=== PATIENT | male | born 1995 ===

== ENCOUNTER 2021-06-25 19:38 | Inpatient (IN) ==
[2021-06-25 20:35] LABS: Hematocrit 39.8 VOL% (42.0-52.0); Hemoglobin 13.6 GM/DL (14.0-18.0); Immature Granulocytes % 0.5 %; Immature Granulocytes Absolute 0.02 #; Lymphocytes # 1.1 10*3/uL (1.4-4.0); Lymphocytes % 27.5 % (21.2-54.2); Mean Corpuscular HGB Conc 34.2 GM/DL (32-36); Mean Corpuscular Volume 91.1 FL (87-102); Mean Platelet Volume 10.1 FL (9.6-12.0); Platelet Count 136 T/CUMM (130-400); Red Blood Count 4.37 MC/CUMM (3.8-5.5); Red Cell Distribution Width 11.9 % (9.3-17.3); White Blood Count 4.1 T/CUMM (4-12)
[2021-06-25 20:45] LABS: Alanine Aminotransferase 47 U/L (16-61); Albumin 3.8 G/DL (3.4-5.0); Alkaline Phosphatase 49 U/L (45-117); Aspartate Amino Transferase 109 U/L (0-37); Blood Urea Nitrogen 15 MG/DL (7-18); Calcium 8.6 MG/DL (8.5-10.1); Carbon Dioxide 25 MMOL/L (21-32); Estimated Glom Filtration Rate 104 ML/MIN; Glucose 67 MG/DL (74-106); Osmolality,Calculated 277.4 MOS/KG (273-304); Potassium 3.3 MMOL/L (3.5-5.1); Sodium 140 MMOL/L (136-145); Total Protein 8.1 G/DL (6.4-8.2)
[2021-06-25 20:56] LABS: Ferritin 423.6 ng/mL (26-388)
[2021-06-25 22:52] LABS: Bilirubin,Urine Negative (Negative); Blood, Urine Small mg/dL (Negative); Glucose,Urine (UA) Negative (Negative); Hyaline Casts,Urine 3 /LPF (0-3); Ketones,Urine 20 mg/dL (Negative); Mucus,Urine Occasional /LPF (Occasional); Nitrite,Urine Negative (Negative); Protein,Urine 30 MG/DL; RBC,Urine 5 /HPF (0-4); Urine Appearance CLEAR (Clear); Urine Color Yellow (Yellow); Urine Specific Gravity 1.026 (1.001-1.035)
[2021-06-25 23:05] LABS: Barbiturates Screen,Urine Negative (Negative); Benzodiazepines Screen,Urine Positive (Negative); Cannabinoid Screen,Urine Negative (Negative); Opiate Screen,Urine Negative (Negative); Phencyclidine Screen,Urine Negative (Negative)
[2021-06-26] MEDS ORDERED: ONDANSETRON 4 MG/2 ML VIAL IV PRN ×2 (03:00→09:00)
[2021-06-26] MEDS ORDERED: DICYCLOMINE 10 MG CAPSULE PO PRN (03:10)
[2021-06-26 07:09] LABS: Basophils % 0.2 % (0.0-0.8); Hematocrit 41.6 VOL% (42.0-52.0); Hemoglobin 14.5 GM/DL (14.0-18.0); Immature Granulocytes % 0.2 %; Immature Granulocytes Absolute 0.01 #; Lymphocytes # 1.2 10*3/uL (1.4-4.0); Lymphocytes % 30.1 % (21.2-54.2); Mean Corpuscular HGB Conc 34.9 GM/DL (32-36); Mean Platelet Volume 10.2 FL (9.6-12.0); Monocytes % 10.6 % (1.7-12.7); Neutrophils % 58.9 % (38.7-73.9); Platelet Count 122 T/CUMM (130-400); Red Blood Count 4.52 MC/CUMM (3.8-5.5); Red Cell Distribution Width 12.1 % (9.3-17.3); White Blood Count 4.1 T/CUMM (4-12)
[2021-06-26 07:27] LABS: Hypochromasia 1+; Microcytosis 1+; Platelet Estimate Adequate
[2021-06-26 07:28] LABS: Ovalocytes Slight
[2021-06-26 07:37] LABS: Albumin 3.9 G/DL (3.4-5.0); Bilirubin,Total 1.8 MG/DL (0.20-1.00); Calcium 8.6 MG/DL (8.5-10.1); Osmolality,Calculated 278.3 MOS/KG (273-304); Potassium 3.9 MMOL/L (3.5-5.1); Total Protein 7.9 G/DL (6.4-8.2)
[2021-06-26 07:38] LABS: Ferritin 405.3 ng/mL (26-388)
[2021-06-26] MEDS ORDERED: diphenhydrAMINE 50 MG/1 ML VIAL IV PRN ×2 (09:00)
[2021-06-26] MEDS ORDERED: SODIUM CHLORIDE 0.9% 200 ML IV SCH (09:00)
[2021-06-26] MEDS ORDERED: ACETAMINOPHEN 325 MG TABLET PO PRN (09:00)
[2021-06-26] MEDS ORDERED: MECLIZINE 25 MG TABLET PO PRN (09:00)
[2021-06-26] MEDS ORDERED: methylPREDNISolone SOD SUC 125 MG/2 ML VIAL IV PRN (09:00)
[2021-06-26] MEDS: MULTIVITAMIN (CENTRUM) TABLET PO SCH (09:20)
[2021-06-26] MEDS: FAMOTIDINE 20 MG TABLET PO SCH ×2 (09:20→20:30)
[2021-06-26] MEDS: DEXAMETHASONE 4 MG/1 ML VIAL IV SCH (09:20)
[2021-06-26] MEDS: FOLIC ACID 1 MG TABLET PO SCH (09:20)
[2021-06-26] MEDS: ASCORBIC ACID 500 MG TABLET PO SCH ×2 (09:21→20:30)
[2021-06-26] MEDS: ZINC GLUCONATE 50 MG TABLET PO SCH (09:21)
[2021-06-26] MEDS: SODIUM CHLORIDE 0.9% 1,000 ML IV SCH (09:21)
[2021-06-26] MEDS: THIAMINE 100 MG TABLET PO SCH (09:21)
[2021-06-26] MEDS: CHOLECALCIFEROL 1,000 UNIT TABLET PO SCH (09:21)
[2021-06-26] MEDS: ENOXAPARIN 40 MG/0.4 ML SYRINGE SUBCUT SCH (09:56)
[2021-06-26] MEDS ORDERED: CASIRIVIMAB/IMDEVIMAB 1,200 MG in SODIUM CHLORIDE 0.9% 100 ML IV ONE (10:00)
[2021-06-26] MEDS: ZIPRASIDONE 20 MG/1 ML VIAL IM PRN (13:26)
[2021-06-26] MEDS: HydrOXYzine PAMOATE 25 MG CAPSULE PO PRN (20:30)
[2021-06-26] MEDS: METHOCARBAMOL 500 MG TABLET PO PRN (20:30)
[2021-06-27] MEDS: LORazepam 2 MG/1 ML VIAL IV PRN (00:10)
[2021-06-27] MEDS: SODIUM CHLORIDE 0.9% 1,000 ML IV SCH (06:58)
[2021-06-27 07:03] LABS: Basophils % 0.2 % (0.0-0.8); Hematocrit 39.6 VOL% (42.0-52.0); Hemoglobin 13.6 GM/DL (14.0-18.0); Immature Granulocytes % 0.2 %; Immature Granulocytes Absolute 0.01 #; Lymphocytes % 24.3 % (21.2-54.2); Mean Corpuscular HGB Conc 34.3 GM/DL (32-36); Mean Corpuscular Volume 93.2 FL (87-102); Mean Platelet Volume 10.3 FL (9.6-12.0); Monocytes % 9.2 % (1.7-12.7); Neutrophils % 66.1 % (38.7-73.9); Platelet Count 123 T/CUMM (130-400); Red Blood Count 4.25 MC/CUMM (3.8-5.5); Red Cell Distribution Width 12.1 % (9.3-17.3)
[2021-06-27 07:26] LABS: Hypochromasia Slight
[2021-06-27 07:32] LABS: Calcium 8.6 MG/DL (8.5-10.1); Osmolality,Calculated 281.1 MOS/KG (273-304); Potassium 3.8 MMOL/L (3.5-5.1)
[2021-06-27] MEDS: MULTIVITAMIN (CENTRUM) TABLET PO SCH (08:40)
[2021-06-27] MEDS: DEXAMETHASONE 4 MG/1 ML VIAL IV SCH (08:40)
[2021-06-27] MEDS: ASCORBIC ACID 500 MG TABLET PO SCH ×2 (08:41→20:30)
[2021-06-27] MEDS: FOLIC ACID 1 MG TABLET PO SCH ×2 (08:41→09:00)
[2021-06-27] MEDS: FAMOTIDINE 20 MG TABLET PO SCH ×2 (08:41→20:30)
[2021-06-27] MEDS: ZINC GLUCONATE 50 MG TABLET PO SCH (08:41)
[2021-06-27] MEDS: ENOXAPARIN 40 MG/0.4 ML SYRINGE SUBCUT SCH (08:41)
[2021-06-27] MEDS: THIAMINE 100 MG TABLET PO SCH (08:41)
[2021-06-27] MEDS: CHOLECALCIFEROL 1,000 UNIT TABLET PO SCH (08:41)
[2021-06-27] MEDS: OLANZapine 5 MG TABLET PO SCH ×2 (12:50→20:30)
[2021-06-27] MEDS: MELATONIN 3 MG TABLET PO PRN (20:30)
[2021-06-27] MEDS: HydrOXYzine PAMOATE 25 MG CAPSULE PO PRN (20:30)
[2021-06-28 06:18] LABS: Basophils % 0.2 % (0.0-0.8); Hematocrit 40.6 VOL% (42.0-52.0); Hemoglobin 13.9 GM/DL (14.0-18.0); Immature Granulocytes % 0.3 %; Immature Granulocytes Absolute 0.02 #; Lymphocytes # 1.4 10*3/uL (1.4-4.0); Lymphocytes % 22.9 % (21.2-54.2); Mean Corpuscular HGB Conc 34.2 GM/DL (32-36); Mean Corpuscular Volume 92.9 FL (87-102); Mean Platelet Volume 10.3 FL (9.6-12.0); Monocytes % 7.9 % (1.7-12.7); Neutrophils % 68.7 % (38.7-73.9); Platelet Count 176 T/CUMM (130-400); Red Blood Count 4.37 MC/CUMM (3.8-5.5); Red Cell Distribution Width 11.9 % (9.3-17.3); White Blood Count 5.9 T/CUMM (4-12)
[2021-06-28 06:29] LABS: Calcium 8.7 MG/DL (8.5-10.1); Osmolality,Calculated 279.3 MOS/KG (273-304); Potassium 3.8 MMOL/L (3.5-5.1)
[2021-06-28] MEDS: OLANZapine 5 MG TABLET PO SCH ×2 (09:00→20:25)
[2021-06-28] MEDS: THIAMINE 100 MG TABLET PO SCH (09:00)
[2021-06-28] MEDS: ASCORBIC ACID 500 MG TABLET PO SCH ×2 (09:00→20:25)
[2021-06-28] MEDS: ZINC GLUCONATE 50 MG TABLET PO SCH (09:00)
[2021-06-28] MEDS: MULTIVITAMIN (CENTRUM) TABLET PO SCH (09:00)
[2021-06-28] MEDS: DEXAMETHASONE 4 MG/1 ML VIAL IV SCH (09:00)
[2021-06-28] MEDS: ENOXAPARIN 40 MG/0.4 ML SYRINGE SUBCUT SCH (09:00)
[2021-06-28] MEDS: FAMOTIDINE 20 MG TABLET PO SCH ×2 (09:00→20:25)
[2021-06-28] MEDS: CHOLECALCIFEROL 1,000 UNIT TABLET PO SCH (09:00)
[2021-06-28] MEDS: ZIPRASIDONE 20 MG/1 ML VIAL IM PRN (11:39)
[2021-06-28] MEDS: LORazepam 2 MG/1 ML VIAL IV PRN (18:41)
[2021-06-28] MEDS ORDERED: LORazepam 2 MG/1 ML VIAL ONE (18:44)
[2021-06-28] MEDS: HydrOXYzine PAMOATE 25 MG CAPSULE PO PRN (20:25)
[2021-06-28] MEDS: MELATONIN 3 MG TABLET PO PRN (20:25)
[2021-06-29 05:43] LABS: Basophils % 0.2 % (0.0-0.8); Hematocrit 38.1 VOL% (42.0-52.0); Hemoglobin 12.8 GM/DL (14.0-18.0); Immature Granulocytes % 0.3 %; Immature Granulocytes Absolute 0.02 #; Lymphocytes # 1.7 10*3/uL (1.4-4.0); Lymphocytes % 27.4 % (21.2-54.2); Mean Corpuscular HGB Conc 33.6 GM/DL (32-36); Mean Corpuscular Volume 92.3 FL (87-102); Mean Platelet Volume 9.9 FL (9.6-12.0); Monocytes % 12.6 % (1.7-12.7); Neutrophils % 59.5 % (38.7-73.9); Platelet Count 205 T/CUMM (130-400); Red Blood Count 4.13 MC/CUMM (3.8-5.5); Red Cell Distribution Width 11.9 % (9.3-17.3); White Blood Count 6.3 T/CUMM (4-12)
[2021-06-29 06:11] LABS: Calcium 8.6 MG/DL (8.5-10.1); Osmolality,Calculated 282.1 MOS/KG (273-304); Potassium 3.5 MMOL/L (3.5-5.1)
[2021-06-29] MEDS: ENOXAPARIN 40 MG/0.4 ML SYRINGE SUBCUT SCH (08:24)
[2021-06-29] MEDS: ZINC GLUCONATE 50 MG TABLET PO SCH (08:25)
[2021-06-29] MEDS: FOLIC ACID 1 MG TABLET PO SCH (08:25)
[2021-06-29] MEDS: OLANZapine 5 MG TABLET PO SCH ×2 (08:25→20:30)
[2021-06-29] MEDS: CHOLECALCIFEROL 1,000 UNIT TABLET PO SCH (08:25)
[2021-06-29] MEDS: MULTIVITAMIN (CENTRUM) TABLET PO SCH (08:25)
[2021-06-29] MEDS: DEXAMETHASONE 4 MG/1 ML VIAL IV SCH (08:25)
[2021-06-29] MEDS: FAMOTIDINE 20 MG TABLET PO SCH ×2 (08:25→20:30)
[2021-06-29] MEDS: THIAMINE 100 MG TABLET PO SCH (08:26)
[2021-06-29] MEDS: ASCORBIC ACID 500 MG TABLET PO SCH ×2 (08:26→20:30)
[2021-06-29] MEDS: HydrOXYzine PAMOATE 25 MG CAPSULE PO PRN ×2 (13:33→20:30)
[2021-06-29] MEDS: ACETAMINOPHEN 325 MG TABLET PO PRN (16:06)
[2021-06-29] MEDS: MELATONIN 3 MG TABLET PO PRN (20:30)
[2021-06-30] MEDS: METHOCARBAMOL 500 MG TABLET PO PRN (01:53)
[2021-06-30 07:00] LABS: Basophils % 0.2 % (0.0-0.8); Eosinophils % 0.1 % (0.00-10.9); Hematocrit 40.5 VOL% (42.0-52.0); Hemoglobin 13.6 GM/DL (14.0-18.0); Immature Granulocytes % 0.8 %; Immature Granulocytes Absolute 0.08 #; Lymphocytes # 1.8 10*3/uL (1.4-4.0); Lymphocytes % 17.8 % (21.2-54.2); Mean Corpuscular HGB Conc 33.6 GM/DL (32-36); Mean Corpuscular Volume 92.7 FL (87-102); Mean Platelet Volume 9.8 FL (9.6-12.0); Monocytes % 11.3 % (1.7-12.7); Neutrophils % 69.8 % (38.7-73.9); Platelet Count 240 T/CUMM (130-400); Red Blood Count 4.37 MC/CUMM (3.8-5.5); Red Cell Distribution Width 11.9 % (9.3-17.3); White Blood Count 10.3 T/CUMM (4-12)
[2021-06-30 07:28] LABS: Calcium 9.1 MG/DL (8.5-10.1); Osmolality,Calculated 284.3 MOS/KG (273-304); Potassium 3.2 MMOL/L (3.5-5.1)
[2021-06-30] MEDS: ASCORBIC ACID 500 MG TABLET PO SCH ×2 (09:04→21:00)
[2021-06-30] MEDS: ZINC GLUCONATE 50 MG TABLET PO SCH (09:04)
[2021-06-30] MEDS: FAMOTIDINE 20 MG TABLET PO SCH ×2 (09:05→21:00)
[2021-06-30] MEDS: CHOLECALCIFEROL 1,000 UNIT TABLET PO SCH (09:05)
[2021-06-30] MEDS: DEXAMETHASONE 4 MG/1 ML VIAL IV SCH (09:05)
[2021-06-30] MEDS: OLANZapine 5 MG TABLET PO SCH ×2 (09:05→21:00)
[2021-06-30] MEDS: THIAMINE 100 MG TABLET PO SCH (09:05)
[2021-06-30] MEDS: FOLIC ACID 1 MG TABLET PO SCH (09:05)
[2021-06-30] MEDS: ENOXAPARIN 40 MG/0.4 ML SYRINGE SUBCUT SCH (09:05)
[2021-06-30] MEDS: MULTIVITAMIN (CENTRUM) TABLET PO SCH (09:05)
[2021-06-30] MEDS: MELATONIN 3 MG TABLET PO PRN (21:00)
[2021-07-01] MEDS: OLANZapine 5 MG TABLET PO SCH ×2 (08:19→20:50)
[2021-07-01] MEDS: MULTIVITAMIN (CENTRUM) TABLET PO SCH (08:19)
[2021-07-01] MEDS: CHOLECALCIFEROL 1,000 UNIT TABLET PO SCH (08:19)
[2021-07-01] MEDS: FAMOTIDINE 20 MG TABLET PO SCH ×2 (08:19→20:49)
[2021-07-01] MEDS: ASCORBIC ACID 500 MG TABLET PO SCH ×2 (08:20→20:49)
[2021-07-01] MEDS: ENOXAPARIN 40 MG/0.4 ML SYRINGE SUBCUT SCH (08:20)
[2021-07-01] MEDS: DEXAMETHASONE 4 MG/1 ML VIAL IV SCH (08:20)
[2021-07-01] MEDS: ZINC GLUCONATE 50 MG TABLET PO SCH (08:20)
[2021-07-01] MEDS: FOLIC ACID 1 MG TABLET PO SCH (08:20)
[2021-07-01] MEDS: THIAMINE 100 MG TABLET PO SCH (08:21)
[2021-07-01] MEDS: HydrOXYzine PAMOATE 25 MG CAPSULE PO PRN (15:16)
[2021-07-01] MEDS: MELATONIN 3 MG TABLET PO PRN (20:49)
[2021-07-02 05:51] LABS: Calcium 9.2 MG/DL (8.5-10.1); Osmolality,Calculated 274.8 MOS/KG (273-304); Potassium 3.8 MMOL/L (3.5-5.1)
[2021-07-02] MEDS: ASCORBIC ACID 500 MG TABLET PO SCH ×2 (08:52→21:18)
[2021-07-02] MEDS: OLANZapine 5 MG TABLET PO SCH ×2 (08:53→21:18)
[2021-07-02] MEDS: FOLIC ACID 1 MG TABLET PO SCH (08:53)
[2021-07-02] MEDS: ACETAMINOPHEN 325 MG TABLET PO PRN (08:53)
[2021-07-02] MEDS: FAMOTIDINE 20 MG TABLET PO SCH ×2 (08:53→21:17)
[2021-07-02] MEDS: CHOLECALCIFEROL 1,000 UNIT TABLET PO SCH (08:53)
[2021-07-02] MEDS: ZINC GLUCONATE 50 MG TABLET PO SCH (08:53)
[2021-07-02] MEDS: MULTIVITAMIN (CENTRUM) TABLET PO SCH (08:53)
[2021-07-02] MEDS: ENOXAPARIN 40 MG/0.4 ML SYRINGE SUBCUT SCH (08:54)
[2021-07-02] MEDS: DEXAMETHASONE 4 MG/1 ML VIAL IV SCH (08:54)
[2021-07-02] MEDS: cefTRIAXone 1,000 MG in SODIUM CHLORIDE 0.9% 100 ML IV SCH (09:10)
[2021-07-02] MEDS: THIAMINE 100 MG TABLET PO SCH (09:15)
[2021-07-02] MEDS: AZITHROMYCIN INJ 500 MG in SODIUM CHLORIDE 0.9% 250 ML IV SCH (09:50)
[2021-07-02 12:34] LABS: Bacteria,Urine Many /HPF (Few); Bilirubin,Urine Negative (Negative); Blood, Urine Negative (Negative); Glucose,Urine (UA) >=500 mg/dL (Negative); Ketones,Urine Negative (Negative); Mucus,Urine Few /LPF (Occasional); Nitrite,Urine Positive (Negative); Protein,Urine Negative; RBC,Urine 5 /HPF (0-4); Urine Appearance CLEAR (Clear); Urine Color Yellow (Yellow); Urine Specific Gravity 1.027 (1.001-1.035); Urine Urobilinogen < 2.0 EU/DL (0.2-1.0)
[2021-07-02] MEDS ORDERED: VALPROIC ACID INJ 1,000 MG in SODIUM CHLORIDE 0.9% 100 ML IV ONE (18:30)
[2021-07-02] MEDS: DIVALPROEX ER 500 MG TABLET PO SCH (21:17)
[2021-07-03 05:44] LABS: Basophils % 0.1 % (0.0-0.8); Hematocrit 35.8 VOL% (42.0-52.0); Hemoglobin 12.5 GM/DL (14.0-18.0); Immature Granulocytes % 2.6 %; Immature Granulocytes Absolute 0.38 #; Lymphocytes # 1.6 10*3/uL (1.4-4.0); Lymphocytes % 10.7 % (21.2-54.2); Mean Corpuscular HGB Conc 34.9 GM/DL (32-36); Mean Corpuscular Volume 89.7 FL (87-102); Mean Platelet Volume 9.6 FL (9.6-12.0); Monocytes % 7.5 % (1.7-12.7); Neutrophils % 79.1 % (38.7-73.9); Platelet Count 332 T/CUMM (130-400); Red Blood Count 3.99 MC/CUMM (3.8-5.5); Red Cell Distribution Width 11.9 % (9.3-17.3); White Blood Count 14.6 T/CUMM (4-12)
[2021-07-03 06:12] LABS: Calcium 9.3 MG/DL (8.5-10.1); Osmolality,Calculated 274.2 MOS/KG (273-304); Potassium 4.1 MMOL/L (3.5-5.1)
[2021-07-03] MEDS: MULTIVITAMIN (CENTRUM) TABLET PO SCH (10:46)
[2021-07-03] MEDS: DIVALPROEX ER 500 MG TABLET PO SCH ×2 (10:47→20:01)
[2021-07-03] MEDS: DEXAMETHASONE 4 MG/1 ML VIAL IV SCH (10:47)
[2021-07-03] MEDS: FOLIC ACID 1 MG TABLET PO SCH (10:47)
[2021-07-03] MEDS: ENOXAPARIN 40 MG/0.4 ML SYRINGE SUBCUT SCH (10:47)
[2021-07-03] MEDS: FAMOTIDINE 20 MG TABLET PO SCH ×2 (10:47→20:01)
[2021-07-03] MEDS: CHOLECALCIFEROL 1,000 UNIT TABLET PO SCH (10:48)
[2021-07-03] MEDS: ASCORBIC ACID 500 MG TABLET PO SCH ×2 (10:48→20:01)
[2021-07-03] MEDS: THIAMINE 100 MG TABLET PO SCH (10:48)
[2021-07-03] MEDS: cefTRIAXone 1,000 MG in SODIUM CHLORIDE 0.9% 100 ML IV SCH (10:48)
[2021-07-03] MEDS: OLANZapine 5 MG TABLET PO SCH ×2 (10:49→20:01)
[2021-07-03] MEDS: ZINC GLUCONATE 50 MG TABLET PO SCH (10:49)
[2021-07-03] MEDS: AZITHROMYCIN INJ 500 MG in SODIUM CHLORIDE 0.9% 250 ML IV SCH (10:50)
[2021-07-03] MEDS: HydrOXYzine PAMOATE 25 MG CAPSULE PO PRN (21:45)
[2021-07-03] MEDS: MELATONIN 3 MG TABLET PO PRN (21:45)
[2021-07-04 05:51] LABS: Basophils % 0.2 % (0.0-0.8); Hematocrit 37.1 VOL% (42.0-52.0); Hemoglobin 12.8 GM/DL (14.0-18.0); Immature Granulocytes % 4.9 %; Immature Granulocytes Absolute 0.73 #; Lymphocytes # 1.3 10*3/uL (1.4-4.0); Lymphocytes % 8.9 % (21.2-54.2); Mean Corpuscular HGB Conc 34.5 GM/DL (32-36); Mean Corpuscular Volume 90.7 FL (87-102); Monocytes % 6.9 % (1.7-12.7); Neutrophils % 79.1 % (38.7-73.9); Platelet Count 377 T/CUMM (130-400); Red Blood Count 4.09 MC/CUMM (3.8-5.5); Red Cell Distribution Width 11.9 % (9.3-17.3); White Blood Count 14.8 T/CUMM (4-12)
[2021-07-04 06:19] LABS: Band Neutrophils 1 % (0-10); Hypochromasia 1+; Lymphocytes 13 % (20-55); Microcytosis 1+; Platelet Estimate Adequate; Segmented Neutrophils 82 % (50-85); Total Cells Counted 100
[2021-07-04 06:21] LABS: Calcium 9.7 MG/DL (8.5-10.1); Ferritin 238.6 ng/mL (26-388); Potassium 4.2 MMOL/L (3.5-5.1)
[2021-07-04] MEDS: cefTRIAXone 1,000 MG in SODIUM CHLORIDE 0.9% 100 ML IV SCH (09:01)
[2021-07-04] MEDS: MULTIVITAMIN (CENTRUM) TABLET PO SCH (09:35)
[2021-07-04] MEDS: DEXAMETHASONE 4 MG/1 ML VIAL IV SCH (09:36)
[2021-07-04] MEDS: DIVALPROEX ER 500 MG TABLET PO SCH ×2 (09:37→20:39)
[2021-07-04] MEDS: ENOXAPARIN 40 MG/0.4 ML SYRINGE SUBCUT SCH (09:37)
[2021-07-04] MEDS: ASCORBIC ACID 500 MG TABLET PO SCH ×2 (09:37→20:38)
[2021-07-04] MEDS: THIAMINE 100 MG TABLET PO SCH (09:37)
[2021-07-04] MEDS: FOLIC ACID 1 MG TABLET PO SCH (09:37)
[2021-07-04] MEDS: ZINC GLUCONATE 50 MG TABLET PO SCH (09:37)
[2021-07-04] MEDS: CHOLECALCIFEROL 1,000 UNIT TABLET PO SCH (09:37)
[2021-07-04] MEDS: FAMOTIDINE 20 MG TABLET PO SCH ×2 (09:37→20:38)
[2021-07-04] MEDS: OLANZapine 5 MG TABLET PO SCH ×2 (09:38→20:39)
[2021-07-04] MEDS: AZITHROMYCIN INJ 500 MG in SODIUM CHLORIDE 0.9% 250 ML IV SCH (10:24)
[2021-07-05 06:06] LABS: Basophils % 0.2 % (0.0-0.8); Hematocrit 37.5 VOL% (42.0-52.0); Hemoglobin 12.9 GM/DL (14.0-18.0); Immature Granulocytes % 4.2 %; Immature Granulocytes Absolute 0.53 #; Lymphocytes # 1.9 10*3/uL (1.4-4.0); Lymphocytes % 14.7 % (21.2-54.2); Mean Corpuscular HGB Conc 34.4 GM/DL (32-36); Mean Corpuscular Volume 90.1 FL (87-102); Mean Platelet Volume 9.8 FL (9.6-12.0); Monocytes % 7.6 % (1.7-12.7); Neutrophils % 73.3 % (38.7-73.9); Platelet Count 434 T/CUMM (130-400); Red Blood Count 4.16 MC/CUMM (3.8-5.5); Red Cell Distribution Width 11.9 % (9.3-17.3); White Blood Count 12.7 T/CUMM (4-12)
[2021-07-05 06:24] LABS: Calcium 9.5 MG/DL (8.5-10.1); Osmolality,Calculated 278.8 MOS/KG (273-304); Potassium 4.1 MMOL/L (3.5-5.1)
[2021-07-05 06:52] LABS: Anisocytosis 1+; Band Neutrophils 3 % (0-10); Lymphocytes 16 % (20-55); Macrocytosis 1+; Nucleated Red Blood Cells 1 (0-5); Platelet Estimate Normal; Segmented Neutrophils 72 % (50-85); Total Cells Counted 100
[2021-07-05] MEDS: MULTIVITAMIN (CENTRUM) TABLET PO SCH (09:58)
[2021-07-05] MEDS: DEXAMETHASONE 4 MG/1 ML VIAL IV SCH (09:58)
[2021-07-05] MEDS: ASCORBIC ACID 500 MG TABLET PO SCH ×2 (09:59→21:31)
[2021-07-05] MEDS: cefTRIAXone 1,000 MG in SODIUM CHLORIDE 0.9% 100 ML IV SCH (09:59)
[2021-07-05] MEDS: FAMOTIDINE 20 MG TABLET PO SCH ×2 (09:59→21:31)
[2021-07-05] MEDS: ENOXAPARIN 40 MG/0.4 ML SYRINGE SUBCUT SCH (09:59)
[2021-07-05] MEDS: THIAMINE 100 MG TABLET PO SCH (09:59)
[2021-07-05] MEDS: FOLIC ACID 1 MG TABLET PO SCH (09:59)
[2021-07-05] MEDS: DIVALPROEX ER 500 MG TABLET PO SCH ×2 (09:59→21:31)
[2021-07-05] MEDS: CHOLECALCIFEROL 1,000 UNIT TABLET PO SCH (10:00)
[2021-07-05] MEDS: OLANZapine 5 MG TABLET PO SCH ×2 (10:00→21:31)
[2021-07-05] MEDS: AZITHROMYCIN 250 MG TABLET PO SCH (10:00)
[2021-07-05] MEDS: ZINC GLUCONATE 50 MG TABLET PO SCH (10:00)
[2021-07-05] MEDS: MELATONIN 3 MG TABLET PO PRN (21:31)
[2021-07-06 05:54] LABS: Basophils % 0.4 % (0.0-0.8); Hematocrit 38.4 VOL% (42.0-52.0); Hemoglobin 13.6 GM/DL (14.0-18.0); Immature Granulocytes % 4.8 %; Immature Granulocytes Absolute 0.51 #; Lymphocytes # 2.4 10*3/uL (1.4-4.0); Lymphocytes % 22.4 % (21.2-54.2); Mean Corpuscular HGB Conc 35.4 GM/DL (32-36); Mean Corpuscular Volume 90.1 FL (87-102); Mean Platelet Volume 9.8 FL (9.6-12.0); Monocytes % 8.3 % (1.7-12.7); Neutrophils % 64.1 % (38.7-73.9); Platelet Count 404 T/CUMM (130-400); Red Blood Count 4.26 MC/CUMM (3.8-5.5); Red Cell Distribution Width 11.9 % (9.3-17.3); White Blood Count 10.6 T/CUMM (4-12)
[2021-07-06 06:04] LABS: Calcium 9.7 MG/DL (8.5-10.1); Potassium 4.3 MMOL/L (3.5-5.1)
[2021-07-06 06:22] LABS: Band Neutrophils 1 % (0-10); Hypochromasia Slight; Lymphocytes 33 % (20-55); Microcytosis Slight; Platelet Estimate Adequate; Segmented Neutrophils 58 % (50-85); Total Cells Counted 100
[2021-07-06] MEDS: ASCORBIC ACID 500 MG TABLET PO SCH ×2 (09:27→22:20)
[2021-07-06] MEDS: THIAMINE 100 MG TABLET PO SCH (09:27)
[2021-07-06] MEDS: ZINC GLUCONATE 50 MG TABLET PO SCH (09:27)
[2021-07-06] MEDS: MULTIVITAMIN (CENTRUM) TABLET PO SCH (09:27)
[2021-07-06] MEDS: OLANZapine 5 MG TABLET PO SCH ×2 (09:27→22:20)
[2021-07-06] MEDS: FAMOTIDINE 20 MG TABLET PO SCH ×2 (09:27→22:20)
[2021-07-06] MEDS: FOLIC ACID 1 MG TABLET PO SCH (09:27)
[2021-07-06] MEDS: CHOLECALCIFEROL 1,000 UNIT TABLET PO SCH (09:28)
[2021-07-06] MEDS: cefTRIAXone 1,000 MG in SODIUM CHLORIDE 0.9% 100 ML IV SCH (09:28)
[2021-07-06] MEDS: DIVALPROEX ER 500 MG TABLET PO SCH ×2 (09:28→22:21)
[2021-07-06] MEDS: AZITHROMYCIN 250 MG TABLET PO SCH (09:28)
[2021-07-06] MEDS: ENOXAPARIN 40 MG/0.4 ML SYRINGE SUBCUT SCH (09:28)
[2021-07-06] MEDS ORDERED: VALPROIC ACID 250 MG/5 ML UDCUP PO SCH (21:00)
[2021-07-06] MEDS: VALPROIC ACID 250 MG/5 ML UDCUP PO SCH (22:20)
[2021-07-07 04:47] LABS: Basophils % 0.5 % (0.0-0.8); Eosinophils % 0.3 % (0.00-10.9); Hematocrit 40.2 VOL% (42.0-52.0); Hemoglobin 13.5 GM/DL (14.0-18.0); Immature Granulocytes % 4.4 %; Immature Granulocytes Absolute 0.34 #; Lymphocytes # 2.6 10*3/uL (1.4-4.0); Lymphocytes % 33.2 % (21.2-54.2); Mean Corpuscular HGB Conc 33.6 GM/DL (32-36); Mean Corpuscular Volume 93.7 FL (87-102); Mean Platelet Volume 9.5 FL (9.6-12.0); Monocytes % 7.1 % (1.7-12.7); Neutrophils % 54.5 % (38.7-73.9); Platelet Count 360 T/CUMM (130-400); Red Blood Count 4.29 MC/CUMM (3.8-5.5); White Blood Count 7.7 T/CUMM (4-12)
[2021-07-07 05:06] LABS: Calcium 9.2 MG/DL (8.5-10.1); Osmolality,Calculated 279.8 MOS/KG (273-304); Potassium 4.6 MMOL/L (3.5-5.1)
[2021-07-07 06:08] LABS: Lymphocytes 50 % (20-55); Platelet Estimate Adequate; Segmented Neutrophils 43 % (50-85); Total Cells Counted 100
[2021-07-07 06:09] LABS: Hypochromasia Slight; Microcytosis Slight
[2021-07-07] MEDS: cefTRIAXone 1,000 MG in SODIUM CHLORIDE 0.9% 100 ML IV SCH (09:02)
[2021-07-07] MEDS: ENOXAPARIN 40 MG/0.4 ML SYRINGE SUBCUT SCH (09:02)
[2021-07-07] MEDS: FOLIC ACID 1 MG TABLET PO SCH (09:03)
[2021-07-07] MEDS: VALPROIC ACID 250 MG/5 ML UDCUP PO SCH ×4 (09:03→21:44)
[2021-07-07] MEDS: OLANZapine 5 MG TABLET PO SCH ×2 (09:03→21:45)
[2021-07-07] MEDS: FAMOTIDINE 20 MG TABLET PO SCH ×2 (09:03→21:45)
[2021-07-07] MEDS: CHOLECALCIFEROL 1,000 UNIT TABLET PO SCH (09:03)
[2021-07-07] MEDS: ASCORBIC ACID 500 MG TABLET PO SCH ×2 (09:03→21:45)
[2021-07-07] MEDS: ZINC GLUCONATE 50 MG TABLET PO SCH (09:03)
[2021-07-07] MEDS: MULTIVITAMIN (CENTRUM) TABLET PO SCH (09:04)
[2021-07-07] MEDS: THIAMINE 100 MG TABLET PO SCH (09:06)
[2021-07-08 04:28] LABS: Basophils % 0.3 % (0.0-0.8); Eosinophils % 0.2 % (0.00-10.9); Hematocrit 39.5 VOL% (42.0-52.0); Hemoglobin 13.4 GM/DL (14.0-18.0); Immature Granulocytes Absolute 0.29 #; Lymphocytes # 2.3 10*3/uL (1.4-4.0); Lymphocytes % 24.6 % (21.2-54.2); Mean Corpuscular HGB Conc 33.9 GM/DL (32-36); Mean Corpuscular Volume 92.7 FL (87-102); Mean Platelet Volume 9.2 FL (9.6-12.0); Monocytes % 8.2 % (1.7-12.7); Neutrophils % 63.7 % (38.7-73.9); Platelet Count 357 T/CUMM (130-400); Red Blood Count 4.26 MC/CUMM (3.8-5.5); White Blood Count 9.5 T/CUMM (4-12)
[2021-07-08 05:00] LABS: Calcium 9.1 MG/DL (8.5-10.1); Potassium 4.4 MMOL/L (3.5-5.1)
[2021-07-08] MEDS: ZINC GLUCONATE 50 MG TABLET PO SCH (09:35)
[2021-07-08] MEDS: OLANZapine 5 MG TABLET PO SCH ×2 (09:35→22:15)
[2021-07-08] MEDS: ENOXAPARIN 40 MG/0.4 ML SYRINGE SUBCUT SCH (09:35)
[2021-07-08] MEDS: FAMOTIDINE 20 MG TABLET PO SCH ×2 (09:35→22:15)
[2021-07-08] MEDS: cefTRIAXone 1,000 MG in SODIUM CHLORIDE 0.9% 100 ML IV SCH (09:35)
[2021-07-08] MEDS: MULTIVITAMIN (CENTRUM) TABLET PO SCH (09:36)
[2021-07-08] MEDS: ASCORBIC ACID 500 MG TABLET PO SCH ×2 (09:36→22:15)
[2021-07-08] MEDS: THIAMINE 100 MG TABLET PO SCH (09:36)
[2021-07-08] MEDS: FOLIC ACID 1 MG TABLET PO SCH (09:36)
[2021-07-08] MEDS: CHOLECALCIFEROL 1,000 UNIT TABLET PO SCH (09:36)
[2021-07-08] MEDS: VALPROIC ACID 250 MG/5 ML UDCUP PO SCH ×4 (09:38→22:30)
[2021-07-08] MEDS: MELATONIN 3 MG TABLET PO PRN (22:14)
[2021-07-08] MEDS: LORazepam 2 MG/1 ML VIAL IV PRN (22:30)
[2021-07-09 05:34] LABS: Basophils % 0.5 % (0.0-0.8); Eosinophils % 0.5 % (0.00-10.9); Hematocrit 40.5 VOL% (42.0-52.0); Hemoglobin 13.5 GM/DL (14.0-18.0); Immature Granulocytes % 4.6 %; Immature Granulocytes Absolute 0.35 #; Lymphocytes # 2.1 10*3/uL (1.4-4.0); Lymphocytes % 27.2 % (21.2-54.2); Mean Corpuscular HGB Conc 33.3 GM/DL (32-36); Mean Corpuscular Volume 92.5 FL (87-102); Mean Platelet Volume 9.4 FL (9.6-12.0); Monocytes % 9.2 % (1.7-12.7); Platelet Count 382 T/CUMM (130-400); Red Blood Count 4.38 MC/CUMM (3.8-5.5); White Blood Count 7.5 T/CUMM (4-12)
[2021-07-09 05:55] LABS: Osmolality,Calculated 274.7 MOS/KG (273-304); Potassium 4.3 MMOL/L (3.5-5.1)
[2021-07-09] MEDS: ASCORBIC ACID 500 MG TABLET PO SCH (09:16)
[2021-07-09] MEDS: MULTIVITAMIN (CENTRUM) TABLET PO SCH (09:16)
[2021-07-09] MEDS: OLANZapine 5 MG TABLET PO SCH (09:17)
[2021-07-09] MEDS: CHOLECALCIFEROL 1,000 UNIT TABLET PO SCH (09:17)
[2021-07-09] MEDS: ZINC GLUCONATE 50 MG TABLET PO SCH (09:17)
[2021-07-09] MEDS: FOLIC ACID 1 MG TABLET PO SCH (09:17)
[2021-07-09] MEDS: FAMOTIDINE 20 MG TABLET PO SCH (09:17)
[2021-07-09] MEDS: VALPROIC ACID 250 MG/5 ML UDCUP PO SCH ×3 (09:18→17:06)
[2021-07-09] MEDS: ENOXAPARIN 40 MG/0.4 ML SYRINGE SUBCUT SCH (09:18)
[2021-07-09] MEDS: cefTRIAXone 1,000 MG in SODIUM CHLORIDE 0.9% 100 ML IV SCH ×2 (09:21→09:59)
[2021-07-09] MEDS: THIAMINE 100 MG TABLET PO SCH (10:30)
[2021-07-09 15:24] VITALS: BP 110/65
== END 2021-07-09 17:20 | DRG 100 ==
LOC: N.ED 19:38 → N.EDINP 19:38 → EDBD 06-26 03:00 → N.2E 06-26 04:22 → SUATTDRO 06-26 10:37
PROVIDERS: ADMIT Emergency Medicine; ATTEND Internal Medicine